=== PATIENT | male | born 1950 | race African-American/Black ===

== ENCOUNTER 2017-12-12 16:00 | Inpatient (IN) | payer OTHER, MEDICAID ==
[~2017-12-12] VITALS: Ht 180.3 cm; Wt 70.8 kg
[2017-12-12] MEDS ORDERED: MORPHINE SULFATE 4 MG/ML CPJ (NOT FOR IM USE) IV STA (21:27)
[2017-12-12] MEDS ORDERED: ONDANSETRON HCL 4MG/2ML VIAL IV STA (21:27)
[2017-12-12] MEDS ORDERED: SODIUM CHLORIDE 0.9% 1,000 ML IV ONE (21:27)
[2017-12-12 21:52] LABS: BASOPHILS % 0.4 % (0.0-2.0); EOSINOPHILS % 1.9 % (0.0-5.0); HEMOGLOBIN. 12.9 g/dL (14.0-18.0); LYMPHOCYTES % 21.8 % (20.0-50.0); MEAN CORPUSCULAR HEMOGLOBIN 29.4 pg (28.0-32.0); MEAN CORPUSCULAR VOLUME 88.9 fL (80.0-94.0); MEAN PLATELET VOLUME 7.2 fl (7.4-10.4); MONOCYTES % 11.2 % (2.0-8.0); NEUTROPHILS % 64.7 % (40.0-76.0); PLATELET 223 x1000/uL (130-400); RED BLOOD CELL COUNT 4.39 mill/uL (4.7-6.1); RED CELL DISTRIBUTION WIDTH 15.5 % (11.6-14.6)
[2017-12-12 21:56] LABS: CHLORIDE 112 mEq/L (98-107)
[2017-12-12 23:54] LABS: CLARITY URINE CLEAR (CLEAR); COLOR URINE YELLOW (YELLOW)
[2017-12-12 23:55] LABS: KETONES URINE NEGATIVE (NEGATIVE); OCCULT BLOOD URINE NEGATIVE (NEGATIVE); PH URINE 8.5 (4.5-8.0); PROTEIN URINE NEGATIVE (NEGATIVE)
[2017-12-12 23:56] LABS: LEUKOCYTE ESTERASE URINE TRACE (NEGATIVE); NITRITE URINE POSITIVE (NEGATIVE); UROBILINOGEN URINE 0.2 E.U./dL (0.2-1.0)
[2017-12-13] MEDS ORDERED: IOHEXOL-350 100 ML BOTTLE ONE
[2017-12-13] MEDS ORDERED: LEVOFLOXACIN 500MG PREMIX 100 ML IV ONE (00:30)
[2017-12-13] MEDS ORDERED: KETOROLAC 15MG/ML VIAL IV ONE (01:45)
[2017-12-13] MEDS ORDERED: CLONIDINE 0.1MG TABLET PO PRN (05:45)
[2017-12-13] MEDS: MORPHINE SULFATE 4 MG/ML CPJ (NOT FOR IM USE) IV PRN ×4 (06:26→19:44)
[2017-12-13 06:49] VITALS: BP 159/71
[2017-12-13] MEDS ORDERED: IBUP-1653 PO (07:35)
[2017-12-13 08:00] VITALS: BP 133/68
[2017-12-13 08:24] LABS: HEMATOCRIT. 37.2 % (42.0-52.0); HEMOGLOBIN. 12.4 g/dL (14.0-18.0); MEAN CORPUSCULAR HEMOGLOBIN 29.8 pg (28.0-32.0); MEAN CORPUSCULAR VOLUME 89.7 fL (80.0-94.0); MEAN PLATELET VOLUME 7.5 fl (7.4-10.4); PLATELET 217 x1000/uL (130-400); RED BLOOD CELL COUNT 4.15 mill/uL (4.7-6.1); RED CELL DISTRIBUTION WIDTH 15.2 % (11.6-14.6)
[2017-12-13 08:46] LABS: CHLORIDE 110 mEq/L (98-107)
[2017-12-13] MEDS: CEFTRIAXONE 1 G PREMIX 50 ML IV SCH (10:23)
[2017-12-13 12:00] VITALS: BP 126/66
[2017-12-13 13:01] LABS: PLATELET ESTIMATE NORMAL
[2017-12-13 16:00] VITALS: BP 120/60
[2017-12-13] MEDS: AMLODIPINE 5MG TABLET PO SCH (20:02)
[2017-12-13] MEDS ORDERED: ACETAMINOPHEN 325MG TABLET PO PRN (20:30)
[2017-12-13 20:31] VITALS: BP 139/80
[2017-12-14] VITALS: BP 144/68
[2017-12-14] MEDS: MORPHINE SULFATE 4 MG/ML CPJ (NOT FOR IM USE) IV PRN ×3 (00:22→09:22)
[2017-12-14 07:42] VITALS: BP 140/64
[2017-12-14] MEDS: CEFTRIAXONE 1 G PREMIX 50 ML IV SCH (09:15)
[2017-12-14] MEDS: AMLODIPINE 5MG TABLET PO SCH (09:15)
[2017-12-14 11:53] VITALS: BP 122/66
[2017-12-14] MEDS ORDERED: AMLO5TAB88 PO (12:13)
[2017-12-14] MEDS ORDERED: CEPH-569 PO (12:13)
[2017-12-14 12:51] VITALS: BP 122/66
== END 2017-12-14 15:51 | disposition home or self-care (01) | DRG 690 ==
LOC: ER 16:09 → 6EST 12-13 00:33 → ENRESERV 12-13 03:21 → 6EST 12-13 05:51
PROVIDERS: ADMIT Internal Medicine; ATTEND Internal Medicine
DX: N12 Tubulo-interstitial nephritis, not specified as acute or chronic (principal); E44.0 Moderate protein-calorie malnutrition; I74.5 Embolism and thrombosis of iliac artery; I74.09 Other arterial embolism and thrombosis of abdominal aorta; I10 Essential (primary) hypertension; Z68.21 Body mass index [BMI] 21.0-21.9, adult
CPT/HCPCS: 36415; 74177; 76870; 80053; 81003; 83605; 83690; 85025; 85610; 87086; 93976; J0696; J1885; J1956; J2270; J2405; J7030; Q9967